=== PATIENT | male | born 1945 | race Caucasian/White ===

== ENCOUNTER 2018-11-10 12:21 | Outpatient (CLI) | payer MEDICARE, BC ==
--- NOTE | 2018-11-10 15:44 | MRI ---
MRI LUMBAR SPINE WITH AND WITHOUT CONTRAST: Multiplanar, multisequential imaging lumbar spine obtained. INDICATION: Low back pain. Lumbar radicular pain. FINDINGS: There is anterior wedging of the T12 vertebra with loss of anterior height estimated at 50%. There i s no edema present indicating a stable compression. Degenerative changes are noted with osteophytes seen anterolaterally from all the visualized vertebrae. The lumbar vertebrae maintain height. There is a grade I spondylolisthesis at L4-5 with evidence of posterior spondylolysis. Degenerative disk changes at all levels. Disk spaces are preserved. At T12-L1, mild disk bulge without central canal or foraminal stenosis. At L1-2, broad-based disk bulge and mild facet hypertrophy. Mild central canal stenosis. At L2-3, diffuse disk bulge. Facet and ligamentous hypertrophy. Mild central canal stenosis. Mild foraminal narrowing slightly more prominent on the left due to facet hypertrophy. At L3-4, diffuse disk bulge. Facet and ligamentous hypertrophy. Mild to moderate central canal sten osis. Bilateral foraminal stenosis more prominent on the left due to asymmetric disk bulge and facet hypertrophy. At L4-5, there is a grade I spondylolisthesis with posterior spondylosis. Broad-based disk bulge. P rominent posterior facet hypertrophy. Moderate to severe central canal stenosis. Bilateral foramina l stenosis. At L5-S1, anular fissure with small focal protrusion slightly to the left. This slightly displaces t he traversing left S1 nerve root. There is facet hypertrophy. Mild central canal stenosis. Bilater al foraminal stenosis. Posterior laminectomy changes. IMPRESSION: 1. Grade I spondylolisthesis at L4-5 with moderate to severe central canal stenosis and bilateral fo raminal stenosis at this level. 2. Bilateral foraminal stenosis at L5-S1 as described above. Mild disk bulge and hypertrophic heart e at the other levels as described. POS: [facility]
== END 2018-11-10 12:22 | disposition home or self-care (01) ==
LOC: MRI 12:21
PROVIDERS: ATTEND Neurological Surgery
DX: M54.16 Radiculopathy, lumbar region (principal); M43.16 Spondylolisthesis, lumbar region; M48.061 Spinal stenosis, lumbar region without neurogenic claudication; M48.07 Spinal stenosis, lumbosacral region; M51.25 Other intervertebral disc displacement, thoracolumbar region
CPT/HCPCS: 72158; 82565

== ENCOUNTER 2020-09-02 10:53 | Inpatient (IN) | payer MEDICARE, BC ==
[2020-09-02 14:36] VITALS: BMI 30.4
[2020-09-02] MEDS ORDERED: Nitroglycerin 0.4 MG TAB (25 Tab Bottle) SL PRN (14:39)
[2020-09-02] MEDS ORDERED: Acetaminophen 325 MG TAB PO PRN (14:40)
[2020-09-02] MEDS ORDERED: Milk Of Magnesia 30 ML UDCUP PO PRN (14:40)
[2020-09-02] MEDS ORDERED: tiZANidine HCl 4 MG TAB PO PRN (14:45)
[2020-09-02] MEDS ORDERED: Sodium Chloride 0.9% 1,000 ML IV SCH (14:45)
[2020-09-02] MEDS ORDERED: Aspirin 325 mg Enteric Coated Tablet PO SCH (14:45)
[2020-09-02 15:07] LABS: #Eosinphils 0.2 thou/uL (0.0-0.7); #Lymphocytes 1.1 thou/uL (1.20-3.40); #Monocytes 0.5 thou/uL (0.11-0.59); #Neutrophils 5.2 thou/uL (1.40-6.50); %Basophils 0.1 % (0.0-1.0); %Eosinophils 2.3 % (0.0-10.0); %Lymphocytes 15.4 % (21.0-51.0); %Monocytes 7.4 % (0.0-10.0); %Neutrophils 74.9 % (42.0-75.0); Hemoglobin 13.1 g/dL (14.0-18.0); Mean Corpuscular HGB CONC 32.9 g/dL (32.0-36.0); Mean Corpuscular Hemoglobin 31.5 pg (27.0-31.0); Mean Corpuscular Volume 95.6 fL (78.0-98.0); Mean Platelet Volume 7.9 fL (7.4-10.4); Platelet Count 113 thou/uL (130-400); RBC Distribution Width 14.4 % (11.5-14.5); Red Blood Cell (RBC) Count 4.18 mill/uL (4.70-6.10)
[2020-09-02 15:26] LABS: Anion Gap 12 mmol/L (10-20); BUN (Urea Nitrogen) 39 mg/dL (8.4-25.7); Calc. Creatinine Clearance 46 mL/min (70-130); Carbon Dioxide 24 mmol/L (23-31); Chloride 107 mmol/L (98-107); Potassium 4.3 mmol/L (3.5-5.1); Sodium 139 mmol/L (136-145)
[2020-09-02 15:27] LABS: ALT (SGPT) 18 U/L (8-55); AST (SGOT) 13 U/L (5-34); Albumin 3.4 g/dL (3.4-4.8); Alkaline Phosphatase 108 U/L (40-110); Bilirubin, Total 0.4 mg/dL (0.2-1.2); Calcium 9.1 mg/dL (7.8-10.44); Cardiac Risk 3.1 (Less than 4.5); Cholesterol 101 mg/dl (< 200 Desired); Globulin 2.8 g/dL (2.4-3.5); Glucose 123 mg/dL (83-110); HDL Cholesterol 33 mg/dL (>60 Neg Risk); LDL Cholesterol, Calculated 52 mg/dL; Protein, Total 6.2 g/dL (5.8-8.1); Triglycerides 79 mg/dL (Less than 150)
[2020-09-02] MEDS: Carvedilol 6.25 MG TAB PO SCH (17:46)
[2020-09-02] MEDS: Glimepiride 2 MG TAB PO SCH (17:46)
[2020-09-02] MEDS: Atorvastatin Calcium 40 MG TAB PO SCH (21:35)
[2020-09-02] MEDS: Docusate 100 MG CAP PO SCH (21:36)
[2020-09-02] MEDS: Gabapentin 300 MG CAP PO SCH (21:36)
[2020-09-02] MEDS: Zolpidem Tartrate 5 MG TAB PO PRN (21:38)
[2020-09-03 05:20] LABS: SARS-CoV-2 PCR NAA for Saliva Not Detected (NotDetected)
[2020-09-03] MEDS ORDERED: Heparin 10,000 UNITS/ 10 ML VIAL ONE (06:35)
[2020-09-03] MEDS ORDERED: Lidocaine 1% (PF) 30 ML VIAL ONE (06:40)
[2020-09-03] MEDS: Levothyroxine Sodium 125 MCG TAB PO SCH (07:06)
[2020-09-03 07:26] LABS: Anion Gap 11 mmol/L (10-20); BUN (Urea Nitrogen) 35 mg/dL (8.4-25.7); Calc. Creatinine Clearance 57 mL/min (70-130); Carbon Dioxide 25 mmol/L (23-31); Chloride 107 mmol/L (98-107); Glucose 101 mg/dL (83-110); Potassium 4.3 mmol/L (3.5-5.1); Sodium 139 mmol/L (136-145)
[2020-09-03] MEDS ORDERED: Midazolam HCl 2 mg/2 ml Vial ONE (08:13)
[2020-09-03] MEDS ORDERED: Fentanyl 100 MCG/2 ML VIAL ONE (08:13)
[2020-09-03] MEDS ORDERED: Aspirin 325 mg Enteric Coated Tablet PO SCH (09:00)
[2020-09-03] MEDS ORDERED: Acetaminophen/Codeine 30-300mg Tablet PO PRN ×2 (09:31)
[2020-09-03] MEDS ORDERED: Nitroglycerin 0.4 MG TAB (25 Tab Bottle) SL PRN (09:31)
[2020-09-03] MEDS ORDERED: Sodium Chloride 0.9% 200 ML IV PRN (09:31)
[2020-09-03] MEDS ORDERED: Sodium Chloride 0.9% 1,000 ML IV SCH (09:45)
[2020-09-03] MEDS: Glimepiride 2 MG TAB PO SCH ×2 (10:29→16:14)
[2020-09-03] MEDS: Aspirin Chewable 81 MG TAB PO SCH (10:30)
[2020-09-03] MEDS: Ezetimibe 10 MG TAB PO SCH (10:30)
[2020-09-03] MEDS: Alogliptin 25 MG TAB PO SCH (10:30)
[2020-09-03] MEDS: Empagliflozin 25 MG TAB PO SCH (10:30)
[2020-09-03] MEDS: Carvedilol 6.25 MG TAB PO SCH ×2 (10:30→17:29)
[2020-09-03] MEDS: Docusate 100 MG CAP PO SCH ×2 (10:30→22:13)
[2020-09-03] MEDS: Gabapentin 300 MG CAP PO SCH ×2 (10:31→22:13)
[2020-09-03] MEDS: Pioglitazone HCl 15 MG TAB PO SCH (10:31)
[2020-09-03] MEDS: Lisinopril 2.5 MG TAB PO SCH (10:31)
[2020-09-03] MEDS ORDERED: Iopamidol 370 76% 100 ML VIAL ONE (10:33)
[2020-09-03] MEDS: Ibuprofen 200 MG TAB PO SCH (10:52)
[2020-09-03] MEDS: Sodium Chloride 0.9% 1,000 ML IV SCH (16:14)
[2020-09-03] MEDS ORDERED: FLU VACC QS2020-21(65YR UP)/PF 240 MCG/0.7 ML SYRINGE IM ONE (16:15)
[2020-09-03] MEDS: Atorvastatin Calcium 40 MG TAB PO SCH (22:13)
[2020-09-03] MEDS: Zolpidem Tartrate 5 MG TAB PO PRN (22:13)
[2020-09-04] MEDS: Sodium Chloride 0.9% 1,000 ML IV SCH (02:21)
[2020-09-04] MEDS: Levothyroxine Sodium 125 MCG TAB PO SCH (05:46)
[2020-09-04 05:58] LABS: Anion Gap 9 mmol/L (10-20); BUN (Urea Nitrogen) 27 mg/dL (8.4-25.7); Calc. Creatinine Clearance 67 mL/min (70-130); Calcium 8.8 mg/dL (7.8-10.44); Carbon Dioxide 25 mmol/L (23-31); Chloride 109 mmol/L (98-107); Glucose 64 mg/dL (83-110); Sodium 139 mmol/L (136-145)
[2020-09-04] MEDS: Docusate 100 MG CAP PO SCH (08:53)
[2020-09-04] MEDS: Lisinopril 2.5 MG TAB PO SCH (08:53)
[2020-09-04] MEDS: Carvedilol 6.25 MG TAB PO SCH (08:53)
[2020-09-04] MEDS: Aspirin Chewable 81 MG TAB PO SCH (08:53)
[2020-09-04] MEDS: Glimepiride 2 MG TAB PO SCH (08:54)
[2020-09-04] MEDS: Gabapentin 300 MG CAP PO SCH (08:54)
[2020-09-04] MEDS: Ibuprofen 200 MG TAB PO SCH (08:54)
[2020-09-04] MEDS: Pioglitazone HCl 15 MG TAB PO SCH (08:55)
[2020-09-04] MEDS: Ezetimibe 10 MG TAB PO SCH (08:55)
[2020-09-04] MEDS: Alogliptin 25 MG TAB PO SCH (08:55)
[2020-09-04] MEDS: Empagliflozin 25 MG TAB PO SCH (08:57)
[2020-09-04] MEDS ORDERED: Bumetanide 1 MG TAB PO SCH (09:00)
[2020-09-04 11:46] VITALS: BP 124/69; TEMP 98
[2020-09-09] MEDS ORDERED: TRULICITY 1.5 MG/0.5 ML SC SCH (09:00)
== END 2020-09-04 13:55 | disposition home or self-care (01) | DRG 287 ==
LOC: 3SE 13:05
PROVIDERS: ADMIT Internal Medicine Cardiovascular Disease; ATTEND Internal Medicine Cardiovascular Disease
PROC: B2111ZZ Fluoroscopy of Multiple Coronary Arteries using Low Osmolar Contrast (ICD-10-PCS; principal; 2020-09-03)
PROC: B2151ZZ Fluoroscopy of Left Heart using Low Osmolar Contrast (ICD-10-PCS; 2020-09-03)
PROC: B2131ZZ Fluoroscopy of Multiple Coronary Artery Bypass Grafts using Low Osmolar Contrast (ICD-10-PCS; 2020-09-03)
PROC: 4A023N7 Measurement of Cardiac Sampling and Pressure, Left Heart, Percutaneous Approach (ICD-10-PCS; 2020-09-03)
DX: I25.10 Atherosclerotic heart disease of native coronary artery without angina pectoris (principal); I25.5 Ischemic cardiomyopathy; E78.00 Pure hypercholesterolemia, unspecified; E78.1 Pure hyperglyceridemia; I48.91 Unspecified atrial fibrillation; E03.9 Hypothyroidism, unspecified; I12.9 Hypertensive chronic kidney disease with stage 1 through stage 4 chronic kidney disease, or unspecified chronic kidney disease; N18.9 Chronic kidney disease, unspecified; Z96.611 Presence of right artificial shoulder joint; E11.22 Type 2 diabetes mellitus with diabetic chronic kidney disease; Z79.899 Other long term (current) drug therapy; Z79.890 Hormone replacement therapy; Z79.82 Long term (current) use of aspirin; Z95.1 Presence of aortocoronary bypass graft; I25.2 Old myocardial infarction; Z95.810 Presence of automatic (implantable) cardiac defibrillator; Z82.49 Family history of ischemic heart disease and other diseases of the circulatory system; Z90.49 Acquired absence of other specified parts of digestive tract; Z91.041 Radiographic dye allergy status; Z88.8 Allergy status to other drugs, medicaments and biological substances; Z20.822 Contact with and (suspected) exposure to COVID-19
CPT/HCPCS: 36415; 71045; 76942; 80048; 80053; 80061; 84484; 85025; 85347; 87635; 93005; 93010; 93455; 93567; 99152; 99153; J1644; J2001; J2250; J3010; Q9967; U0003; U0005

== ENCOUNTER 2021-10-26 07:05 | Outpatient (CLI) | payer MEDICARE, BC ==
[2021-10-26 23:01] LABS: SARS-CoV-2 PCR by NAA Not Detected (NotDetected)
== END 2021-10-26 07:06 | disposition home or self-care (01) ==
LOC: LABBT 07:05
PROVIDERS: ATTEND Internal Medicine Gastroenterology
DX: Z20.822 Contact with and (suspected) exposure to COVID-19 (principal)
CPT/HCPCS: U0003; U0005

== ENCOUNTER 2021-10-29 06:42 | Day surgery (SDC) | payer MEDICARE, BC ==
[2021-10-27 12:23] VITALS: BMI 32.6
[2021-10-29] MEDS ORDERED: Ketamine 50 MG/ML (10ML VIAL) ONE (08:50)
[2021-10-29] MEDS ORDERED: PROPOFOL 200 MG/20 ML VIAL ONE (09:18)
[2021-10-29] MEDS ORDERED: Lidocaine 1% PF 5 ML VIAL ONE (09:18)
== END 2021-10-29 10:17 | disposition home or self-care (01) ==
LOC: SDC 06:42
PROVIDERS: ATTEND Internal Medicine Gastroenterology
PROC: 0DBK8ZX Excision of Ascending Colon, Via Natural or Artificial Opening Endoscopic, Diagnostic (ICD-10-PCS; principal; 2021-10-29)
DX: Z12.11 Encounter for screening for malignant neoplasm of colon (principal); D12.2 Benign neoplasm of ascending colon; I10 Essential (primary) hypertension; I25.10 Atherosclerotic heart disease of native coronary artery without angina pectoris; I48.91 Unspecified atrial fibrillation; E78.5 Hyperlipidemia, unspecified; E11.9 Type 2 diabetes mellitus without complications; E03.9 Hypothyroidism, unspecified; M19.90 Unspecified osteoarthritis, unspecified site; Z86.010 Personal history of colon polyps; Z80.0 Family history of malignant neoplasm of digestive organs; Z79.4 Long term (current) use of insulin; Z79.82 Long term (current) use of aspirin; Z79.84 Long term (current) use of oral hypoglycemic drugs; Z79.890 Hormone replacement therapy; Z79.899 Other long term (current) drug therapy; Z88.3 Allergy status to other anti-infective agents; Z95.1 Presence of aortocoronary bypass graft; Z95.810 Presence of automatic (implantable) cardiac defibrillator
CPT/HCPCS: 36416; 88305; J2704